=== PATIENT | female | born 1995 | race Two or more races ===

== ENCOUNTER 2017-12-07 11:04 | Emergency (ER) | payer OTHER ==
[~2017-12-07] VITALS: Ht 170.2 cm; Wt 90.0 kg
[2017-12-07 11:07] VITALS: BP 124/79
[2017-12-07] MEDS ORDERED: KETOROLAC 30 MG/1 ML IM ONE (11:30)
[2017-12-07] MEDS ORDERED: DIAZEPAM 5 MG TABLET PO ONE (11:30)
[2017-12-07] MEDS ORDERED: KETOROLAC 30 MG/1 ML ONE (11:33)
[2017-12-07] MEDS ORDERED: DIAZEPAM 5 MG TABLET ONE ×2 (11:33→11:36)
[2017-12-07] MEDS ORDERED: HYDROcodone/APAP 5/325 TABLET PO ONE (12:00)
[2017-12-07] MEDS ORDERED: HYDROcodone/APAP 5/325 TABLET ONE (12:12)
== END 2017-12-07 13:58 | disposition home or self-care (01) ==
LOC: ED 12:38
DX: S39.012A Strain of muscle, fascia and tendon of lower back, initial encounter (principal); X58.XXXA Exposure to other specified factors, initial encounter; Y93.89 Activity, other specified; Y92.89 Other specified places as the place of occurrence of the external cause; Y99.8 Other external cause status
CPT/HCPCS: 72110; 96372; 99284; J1885